=== PATIENT | female | born 1950 | race Caucasian/White ===

== ENCOUNTER 2024-06-16 21:42 | Observation (INO) | payer OTHER ==
--- OUTSIDE RECORDS SUMMARY | 2024-06-16 21:45 | XMS REPORT | Clinical Summary ---
Author Name Unknown Organization [facility] Address [address] [place] [address] Care Team Providers Care Telesales Manager Name Role Phone Hernán Escalona MD Primary Care Provider + Social History Tobacco Use Types Packs/Day Years Used Date Smoking Tobacco: Never Assessed Comments Unknown Sex and Gender Information Value Date Recorded Sex Assigned at Not on file Legal Sex Female 9:03 AM CDT Gender Identity Not on file Sexual Orientation Not on file Plan of Treatment Not on file Insurance [facility] [place]: [facility] [id number] [place] [address] [facility] [employer] [facility] Address: [address] [place] [address] Care Teams Telesales Manager Relationship Specialty Start Date End Date Hernán Escalona MD [address] [place] [phone] [email or web address] - General Family Practice 06/29/15
[2024-06-16 23:30] LABS: Absolute Basophils 0.1 K/uL (0-0.5); Absolute Eosinophils 0.1 K/uL (0-0.5); Absolute Lymphocytes (CBC) 2.2 K/uL (0.7-4.9); Absolute Monocytes 0.9 K/uL (0.1-1.3); Absolute Neutrophil 7.2 K/uL (1.8-8.0); Basophils % 0.9 % (0-1.3); Eosinophils % 1.2 % (0-4.4); Hematocrit 44.6 % (36.0-45.0); Lymphocytes % 20.7 % (15.3-44.8); MCH 30.2 pg (27.0-35.0); MCHC 33.6 g/dL (32.0-36.0); MCV 89.9 fL (80-100); MPV 8.8 fL (7.6-11.3); Monocytes % 8.7 % (3.3-12.3); Neutrophils % 68.5 % (41.7-73.7); Nucleated Red Blood Cells % 0.2 % (0-0); Platelets 161 thou/uL (152-406); RBC Red Blood Cell Count 4.96 M/uL (3.86-4.86); Red Cell Distribution Width 13.6 % (12.1-15.2)
[2024-06-16 23:35] LABS: PT Prothrombin Time 11.5 SECONDS (10-13.0); PTT, Activated Partial Thromb 32.6 SECONDS (27.2-37.4); Protime INR 1.01
[2024-06-16 23:46] LABS: Albumin 3.9 g/dL (3.4-5.0); Bilirubin Direct 0.2 mg/dL (0-0.2); Bilirubin Indirect, Calculated 0.5 mg/dL (0.2-0.8); Bilirubin Total 0.7 mg/dL (0.2-1.0); Globulin 3.9 g/dL (2.3-3.5); Protein, Total 7.8 g/dL (6.4-8.2); Troponin High Sensitivity 7.9 pg/mL (<58.9)
[2024-06-17] MEDS ORDERED: HYDRALAZINE HCL 25 MG TABLET ONE (00:30)
[2024-06-17] MEDS ORDERED: NA CHLORIDE 0.9% 1,000 ML ONE (00:30)
[2024-06-17] MEDS ORDERED: HYDRALAZINE HCL 10 MG TABLET ONE (01:23)
[2024-06-17] MEDS ORDERED: LOSARTAN POTASSIUM 50 MG TABLET ONE (01:23)
[2024-06-17] MEDS ORDERED: ASPIRIN EC 325 MG TABLET PO ONE (01:23)
--- NOTE | 2024-06-17 01:23 | EDPHYS ---
Physician Documentation [facility] Name: Vickie Ibrahim Age: 73 yrs Sex: Female : 1950 Arrival Date: 06/16/2024 Time: 21:42 Bed 13 Private MD: ED Physician Jose Miguel Melchor HPI: 06/16 22:11 This 73 yrs old Female presents to ER via Unassigned with complaints of Altered Mental sp4 Status. 06/17 23:24 73-year-old female presents with complaint of mental status changes.. sp4 23:25 Patient was reported to have slurring of the speech and confusion at home.. sp4 Historical: - Allergies: 06/16 22:14 No Known Allergies; vc1 - Home Meds: 22:14 metoprolol tartrate 100 mg Oral tablet [Active]; vc1 - PMHx: 22:14 Thyroid cancer; Hypertensive disorder; vc1 22:16 gastric sleeve; vc1 - PSHx: 22:14 Thyroidectomy; bilateral knee replacement; vc1 - Immunization history:: Adult Immunizations up to date. - Infectious Disease History:: Denies. - Social history:: Smoking status: Patient denies any tobacco usage or history of. - Family history:: not pertinent. ROS: 06/17 23:25 Constitutional: Negative for fever, chills, and weight loss, positive confusion, sp4 positive slurring of the speech resolved prior to arrival. All other systems are negative, Exam: 00:31 Constitutional: This is a well developed, well nourished patient who is awake, alert, sp4 and in no acute distress. Head/Face: Normocephalic, atraumatic. Eyes: Pupils equal round and reactive to light, extra-ocular motions intact. Lids and lashes normal. Conjunctiva and sclera are not injected. Cornea within normal limits. Periorbital areas with no swelling, redness, or edema. ENT: Nares patent. No nasal discharge, no septal abnormalities noted. Tympanic membranes are normal and external auditory canals are clear. Oropharynx with no redness, swelling, or masses, exudates, or evidence of obstruction, uvula midline. Mucous membranes moist. Neck: Trachea midline, no thyromegaly or masses palpated, and no cervical lymphadenopathy. Supple, full range of motion without nuchal rigidity, or vertebral point tenderness. Chest/axilla: Normal chest wall appearance and motion. Nontender with no deformity. No lesions are appreciated. Cardiovascular: Regular rate and rhythm with a normal S1 and S2. No gallops, murmurs, or rubs. Normal PMI, no JVD. No pulse deficits. Respiratory: Lungs have equal breath sounds bilaterally, clear to auscultation and percussion. No rales, rhonchi or wheezes noted. No increased work of breathing, no retractions or nasal flaring. Abdomen/GI: Soft, with normal bowel sounds. No distension or tympany. No guarding or rebound. No evidence of tenderness throughout. Back: No spinal tenderness. No costovertebral tenderness. Skin: Warm, dry with normal turgor. Normal color with no rashes, no lesions, and no evidence of cellulitis. MS/ Extremity: Pulses equal, no cyanosis. Neurovascular intact. Full, normal range of motion. Neuro: Awake and alert, GCS 15, oriented to person, place, time, and situation. Cranial nerves II-XII grossly intact. Motor strength 5/5 in all extremities. Sensory grossly intact. Psych: Awake, alert, with orientation to person, place and time. Behavior, mood, and affect are within normal limits Vital Signs: 06/16 22:11 BP 191 / 73; Pulse 63; Resp 18; Temp 98.5; Pulse Ox 100% ; vc1 06/17 01:42 BP 187 / 92; Pulse 72; Resp 18; Temp 98; Pulse Ox 99% on R/A; MAP 116 mmHg; aa10 NIH Stroke Scale Scores: 00:31 NIHSS Score: 0 sp4 Wilbur Coma Score: 00:31 Eye Response: spontaneous(4). Motor Response: obeys commands(6). Verbal Response: sp4 oriented(5). Total: 15. MDM: 06/16 22:15 Medical Screening Exam initiated sp4 06/17 00:57 ED course: THIS REPORT CONTAINS FINDINGS THAT MAYBE CRITICAL TO PATIENT CARE: I sp4 communicated the above findings by telephone with Dr. Jose Miguel Melchor MD on 06/16/2024 11:40 PM CDT who demonstrated understanding of the above finding(s)/recommendation(s). Electronically signed by: Emelyn Gonzalez MD 06/16/2024 11:40 PM CDT End of Addendum EXAM: CT Head Without Intravenous Contrast CLINICAL HISTORY: The patient is 73 years old and is Female; STROKE ALERT TECHNIQUE: Axial computed tomography images of the head/brain without intravenous contrast. Sagittal and coronal reformatted images were created and reviewed. This CT exam was performed using one or more of the following dose reduction techniques: automated exposure control, adjustment of the mA and/or kV according to patient size, and/or use of iterative reconstruction technique. COMPARISON: No relevant prior studies available. FINDINGS: BRAIN: Unremarkable. The muir-white matter differentiation is preserved . No hemorrhage. No significant white matter disease. No edema. No extra-axial fluid collections. VENTRICLES: Unremarkable. No ventriculomegaly. BONES/JOINTS: No acute fracture. SOFT TISSUES: Unremarkable. SINUSES: Unremarkable as visualized. No acute sinusitis. MASTOID AIR CELLS: Unremarkable as visualized. No mastoid effusion. ORBITS: Unremarkable as visualized. IMPRESSION: No acute intracranial findings. Electronically signed by: Emelyn Gonzalez MD 06/16/2024 11:25 PM. ED course: IMPRESSION: XR Chest, 1 View: No acute findings in the chest. CTAngiography Head With Intravenous Contrast: No large vessel occlusion. No aneurysm. CTAngiography Neck With Intravenous Contrast: No significant stenosis. No dissection or occlusion.. 01:09 Differential Diagnosis: CVA, electrolyte abnormality, seizure, TIA. 4 23:25 Data reviewed: vital signs, nurses notes, lab test result(s), EKG, radiologic studies, sp4 CT scan, plain films. Consideration of Admission/Observation Escalation of care including admission/observation considered. ED course: Stable for admission to the hospital.. 06/16 22:24 Order name: Basic Metabolic Panel 4 06/16 22:24 Order name: CBC with Diff; Complete Time: 00:30 [facility] 06/16 22:24 Order name: Hepatic Function [facility] 06/16 22:24 Order name: High Sensitivity Troponin [facility] 06/16 22:24 Order name: Magnesium [facility] 06/16 22:24 Order name: Protime (+inr); Complete Time: 00:30 [facility] 06/16 22:24 Order name: Ptt, Activated; Complete Time: 00:30 sp4 06/17 01:01 Order name: Glucose, Ancillary Testing; Complete Time: 01:23 EDMD 06/17 01:44 Order name: T4 Free EDMD 06/17 01:44 Order name: Thyroid Stimulating Hormone EDMD 06/17 02:24 Order name: Basic Metabolic Panel EDMD 06/17 02:24 Order name: Basic Metabolic Panel EDMD 06/17 02:24 Order name: Lipid Profile EDMD 06/17 02:24 Order name: Lipid Profile [facility] 06/17 02:24 Order name: Lipid Profile EDMD 06/17 02:24 Order name: Magnesium EDMD 06/17 02:24 Order name: Magnesium EDMD 06/17 03:21 Order name: CREATININE WHOLE BLOOD EDMD 06/16 22:24 Order name: CT Head Angio 4 06/16 22:24 Order name: CT Neck Angio 4 06/16 22:24 Order name: Stroke CXR 1 View sp4 06/16 22:30 Order name: Head Brain Wo Cont EDMD 06/17 02:24 Order name: CONS Physician Consult EDMD 06/16 22:24 Order name: Accucheck; Complete Time: 00:50 sp4 06/16 22:24 Order name: Cardiac monitoring; Complete Time: 00:45 sp4 06/16 22:24 Order name: EKG - Nurse/Tech; Complete Time: 01:00 sp4 06/16 22:24 Order name: IV Saline Lock; Complete Time: 00:45 sp4 06/16 22:24 Order name: Labs collected and sent; Complete Time: 23:20 sp4 06/16 22:24 Order name: NPO; Complete Time: 00:45 sp4 06/16 22:24 Order name: O2 Per Protocol; Complete Time: 00:45 sp4 06/16 22:24 Order name: O2 Sat Monitoring; Complete Time: 00:45 sp4 06/16 22:24 Order name: Stroke Swallow Screen; Complete Time: 00:45 sp4 Administered Medications: 00:44 Drug: NS 0.9% IV 1000 ml IV at 125 ml/hr once; to be given as a bolus over 60 minutes aa10 Route: IV; Rate: 125 ml/hr; Site: left antecubital; 00:45 Drug: HydrALAZINE PO 25 mg PO once Route: PO; aa10 01:52 Follow up: Response: No adverse reaction; Marked relief of symptoms aa10 :26 Drug: Aspirin PO Chewable Tablet 324 mg PO once; 81 mg tablets x 4 Route: PO; :52 Follow up: Response: No adverse reaction; Marked relief of symptoms aa10 :27 Drug: Losartan PO 50 mg PO once Route: PO; :52 Follow up: Response: No adverse reaction; Marked relief of symptoms aa10 :30 Drug: hydrALAZINE IVP 10 mg IVP once Route: IVP; Site: left antecubital; :52 Follow up: Response: No adverse reaction; Marked relief of symptoms aa10 Disposition Summary: 06/17/24 01:22 Hospitalization Ordered Notes: Hospitalization Status: Inpatient Admission sp4 Provider: Thien Oneil sp4 Condition: Fair sp4 Problem: new sp4 Symptoms: have improved sp4 Bed/Room Type: Standard sp4 Location: [facility] ER HOLD(06/17/24 02:01) 3 Room Assignment: ERHOLD-(06/17/24 02:01) 3 Diagnosis - Transient cerebral ischemic attack, unspecified sp4 - Acute intermittent aphasia, acute intermittent dysarthria, TIA sp4 Forms: - Medication Reconciliation Form sp4 - SBAR form sp4 - Leadership Thank You Letter sp4 NIH Stroke Scale - NIH Stroke Score Date: 06/17/2024 Time: 00:31 Total Score = 0 10. Dysarthria (speech clarity - read or repeat words) - 0(Normal) 11. Extinction and Inattention (visual/tactile/auditory/spatial/personal) - 0(No abnormality) 1a. Level of Consciousness (LOC) - 0(Alert) 1b. Level of Consciousness (LOC) (Month \T\ Age) - 0(Both) 1c. LOC Commands (Open \T\ Closes Eyes/Caustic Purification Operator) - 0(Both) 2. Best Gaze (Lateral Gaze Paresis) - 0(Normal) 3. Visual Field Loss - 0(No visual loss) 4. Facial Palsy - 0(Normal) 5a. Left Arm: Motor (10-second hold) - 0(No drift) 5b. Right Arm: Motor (10-second hold) - 0(No drift) 6a. Left Leg: Motor (5-second hold - always test supine) - 0(No drift) 6b. Right Leg: Motor (5-second hold - always test supine) - 0(No drift) 7. Limb Ataxia (finger/nose \T\ heel/ivy - test with eyes open) - 0(Absent) 8. Sensory Loss (pinprick arms/legs/face) - 0(Normal) 9. Best Language: Aphasia (description/naming/reading) - 0(No aphasia) Initials: sp4 Signatures: Dispatcher [employer] EDMS Alvina Adan, RN RN lg3 Laney David RN RN vc1 Jose Miguel Melchor MD MD sp4 Milly Adame RN RN aa10 Corrections: (The following items were deleted from the chart) 06/16 22:24 22:24 Chest Single View+RAD.RAD.BRZ ordered. EDMS EDMS 22:30 22:24 CT-STROKE BRAIN W/O CONTRAST+CT.RAD.BRZ ordered. EDMS EDMS 06/17 01:43 01:23 THYROID STIMULAT HORMONE+C.LAB.BRZ ordered. EDMS EDMS 01:43 01:23 T4 FREE+C.LAB.BRZ ordered. EDMS EDMS 02:01 01:22 Telemetry/MedSurg (Inpatient) sp4 lg3 02:01 01:22 sp4 lg3
--- NOTE | 2024-06-17 01:23 | ER ---
Nurse's Notes [facility] Name: Vickie Ibrahim Age: 73 yrs Sex: Female : 1950 Arrival Date: 06/16/2024 Time: 21:42 Bed 13 Private MD: Diagnosis: Transient cerebral ischemic attack, unspecified;Acute intermittent aphasia, acute intermittent dysarthria, TIA Presentation: 06/16 22:11 Chief complaint: Spouse and/or significant other states: around 6:30 she started vc1 mumbling, talking and wasn't making any sense. She had a slight headache. Talking and not making any sense. Coronavirus screen: Client denies travel out of the [place] in the last 14 days. At this time, the client does not indicate any symptoms associated with coronavirus-19. Ebola Screen: Patient negative for fever greater than or equal to 101.5 degrees Fahrenheit, and additional compatible Ebola Virus Disease symptoms Patient denies exposure to infectious person. Patient denies travel to an Ebola-affected area in the 21 days before illness onset. No symptoms or risks identified at this time. Initial Sepsis Screen: Does the patient meet any 2 criteria? No. Patient's initial sepsis screen is negative. Does the patient have a suspected source of infection? No. Patient's initial sepsis screen is negative. Risk Assessment: Do you want to hurt yourself or someone else? Patient reports no desire to harm self or others. Note Did the same thing a few weeks ago. Onset of symptoms was June 16, 2024. 22:11 Method Of Arrival: Wheelchair vc1 22:11 Acuity: ARE 2 vc1 Triage Assessment: 22:10 General: Appears in no apparent distress. comfortable, well groomed, well developed, vc1 Behavior is cooperative, appropriate for age. Pain: Complains of pain in forehead Pain does not radiate. EENT: No deficits noted. No signs and/or symptoms were reported regarding the EENT system. Neuro: Level of Consciousness is awake, obeys commands, confused, Oriented to person, place, situation, Reports headache. Cardiovascular: Capillary refill < 3 seconds Patient's skin is warm and dry. Respiratory: Airway is patent Respiratory effort is even, unlabored, Respiratory pattern is regular, symmetrical. GI: No deficits noted. No signs and/or symptoms were reported involving the gastrointestinal system. : Reports urinary frequency. Derm: Skin is intact, is healthy with good turgor, Skin is dry, Skin is normal, Skin temperature is warm. Musculoskeletal: No deficits noted. No signs and/or symptoms reported regarding the musculoskeletal system. Historical: - Allergies: 22:14 No Known Allergies; vc1 - Home Meds: 22:14 metoprolol tartrate 100 mg Oral tablet [Active]; vc1 - PMHx: 22:14 Thyroid cancer; Hypertensive disorder; vc1 22:16 gastric sleeve; vc1 - PSHx: 22:14 Thyroidectomy; bilateral knee replacement; vc1 - Immunization history:: Adult Immunizations up to date. - Infectious Disease History:: Denies. - Social history:: Smoking status: Patient denies any tobacco usage or history of. - Family history:: not pertinent. Screenin:13 [facility] ED Fall Risk Assessment (Adult) History of falling in the last 3 months, vc1 including since admission No falls in past 3 months (0 pts) Confusion or Disorientation Yes (5 pts) Intoxicated or Sedated No (0 pts) Impaired Gait Yes (1 pt) Mobility Assist Device Used No (0 pt) Altered Elimination Yes (1 pt) Score/Fall Risk Level 3 or more points = High Risk Oriented to surroundings, Maintained a safe environment, Educated pt \T\ family on fall prevention, incl call for assistance when getting out of bed, Hourly rounding (assess needs \T\ fall precautionary measures) done, Utilized family, sitter, or virtual change management director as indicated. Abuse screen: Denies threats or abuse. Nutritional screening: No deficits noted. Tuberculosis screening: No symptoms or risk factors identified. Assessment: 06/17 01:48 General: Appears in no apparent distress. comfortable, well groomed, well developed, aa10 Behavior is calm, cooperative, appropriate for age, quiet. Pain: Denies pain. Neuro: No deficits noted. Level of Consciousness is awake, alert, obeys commands, Oriented to person, place, time, situation, Appropriate for age Site Supervising Technical Operator are equal bilaterally Moves all extremities. Gait is steady, Speech is normal, Facial symmetry appears normal, Pupils are PERRLA. Cardiovascular: No deficits noted. Capillary refill < 3 seconds. Respiratory: No deficits noted. Airway is patent. GI: No deficits noted. Abdomen is flat. : Urine is clear, Reports urinary frequency. Vital Signs: 06/16 22:11 BP 191 / 73; Pulse 63; Resp 18; Temp 98.5; Pulse Ox 100% ; vc1 06/17 01:42 BP 187 / 92; Pulse 72; Resp 18; Temp 98; Pulse Ox 99% on R/A; MAP 116 mmHg; aa10 Karan Coma Score: 00:31 Eye Response: spontaneous(4). Motor Response: obeys commands(6). Verbal Response: sp4 oriented(5). Total: 15. NIH Stroke Scale Scores: 00:31 NIHSS Score: 0 sp4 ED Course: 06/16 21:45 Patient arrived in ED. jj6 22:11 Jose Miguel Melchor MD is Attending Physician. sp4 22:14 Triage completed. vc1 22:16 Arm band placed on left wrist. vc1 23:01 Stroke CXR 1 View In Process Unspecified. EDMS 23:08 CT Head Angio In Process Unspecified. EDMS 23:08 CT Neck Angio In Process Unspecified. EDMS 23:08 Head Brain Wo Cont In Process Unspecified. EDMS 23:15 Inserted saline lock: 22 gauge in left antecubital area, using aseptic technique. Blood vc1 collected. Flushed with 10 mL NS. 23:20 Basic Metabolic Panel Sent. vk 23:20 CBC with Diff Sent. vk 23:20 Hepatic Function Sent. vk 23:20 High Sensitivity Troponin Sent. vk 23:20 Magnesium Sent. vk 23:20 Protime (+inr) Sent. vk 23:20 Ptt, Activated Sent. vk 06/17 01:21 Thien Oneil MD is Hospitalizing Provider. sp4 01:50 Patient has correct armband on for positive identification. Allergy band placed. Fall aa10 risk band placed. Placed in gown. Bed in low position. Call light in reach. Side rails up X2. Provided Education on: about plan of care. 01:51 No provider procedures requiring assistance completed. aa10 Administered Medications: 00:44 Drug: NS 0.9% IV 1000 ml IV at 125 ml/hr once; to be given as a bolus over 60 minutes aa10 Route: IV; Rate: 125 ml/hr; Site: left antecubital; 00:45 Drug: HydrALAZINE PO 25 mg PO once Route: PO; aa10 01:52 Follow up: Response: No adverse reaction; Marked relief of symptoms aa10 :26 Drug: Aspirin PO Chewable Tablet 324 mg PO once; 81 mg tablets x 4 Route: PO; Follow up: Response: No adverse reaction; Marked relief of symptoms aa10 :27 Drug: Losartan PO 50 mg PO once Route: PO; : Follow up: Response: No adverse reaction; Marked relief of symptoms aa10 :30 Drug: hydrALAZINE IVP 10 mg IVP once Route: IVP; Site: left antecubital; Follow up: Response: No adverse reaction; Marked relief of symptoms aa10 Medication: 01:50 VIS not applicable for this client. aa10 Outcome: :22 Decision to Hospitalize by Provider. sp4 15:12 Patient left the ED. NIH Stroke Scale - NIH Stroke Score Date: 06/17/2024 Time: 00:31 Total Score = 0 10. Dysarthria (speech clarity - read or repeat words) - 0(Normal) 11. Extinction and Inattention (visual/tactile/auditory/spatial/personal) - 0(No abnormality) 1a. Level of Consciousness (LOC) - 0(Alert) 1b. Level of Consciousness (LOC) (Month \T\ Age) - 0(Both) 1c. LOC Commands (Open \T\ Closes Eyes/Machine Joint Cutter) - 0(Both) 2. Best Gaze (Lateral Gaze Paresis) - 0(Normal) 3. Visual Field Loss - 0(No visual loss) 4. Facial Palsy - 0(Normal) 5a. Left Arm: Motor (10-second hold) - 0(No drift) 5b. Right Arm: Motor (10-second hold) - 0(No drift) 6a. Left Leg: Motor (5-second hold - always test supine) - 0(No drift) 6b. Right Leg: Motor (5-second hold - always test supine) - 0(No drift) 7. Limb Ataxia (finger/nose \T\ heel/ivy - test with eyes open) - 0(Absent) 8. Sensory Loss (pinprick arms/legs/face) - 0(Normal) 9. Best Language: Aphasia (description/naming/reading) - 0(No aphasia) Initials: sp4 Signatures: Dispatcher [employer] Shonda Nelson RN RN ph Aruna Lynch jj6 Laney David RN RN vc1 Jose Miguel Melchor MD MD sp4 Aurora Mariscal Ayoku, RN RN aa10
[2024-06-17] MEDS ORDERED: HYDRALAZINE HCL 20 MG/ML VIAL ONE (01:30)
[2024-06-17] MEDS ORDERED: ACETAMINOPHEN 325 MG TABLET PO PRN (02:19)
--- NOTE | 2024-06-17 02:26 | P.HP ---
Certification for Inpatient Patient admitted to: Observation With expected LOS: <2 Midnights Practitioner: I am a practitioner with admitting privileges, knowledge of patient current condition, hospital course, and medical plan of care. Services: Services provided to patient in accordance with Admission requirements found in Title 42 Section 412.3 of the Code of Federal Regulations Patient History Date of Service: 06/17/24 Reason for admission: TIA. History of Present Illness: 73 y o female pt brought in to the ED with c/o AMS. She has a hx of HTN and HLD and she reports feeling weak and altered. She denies any issues with fever, chills, rigor, n/v or burning when she passes urine. She denies double vision of focal weakness in the legs. No trouble finding words or vocalizing words. she also had headaches and her home blood pressure check was elevated. she decided to come to the ED. Her blood pressure was elevated and her initial labs were not overtly concerning. Imaging studies did not reveal any stenosis or acute infarcts. She was admitted for further work up and blood pressure control. Allergies No Known Allergies Allergy (Verified 06/17/24 02:51) Review of Systems General: Malaise Eyes: Unremarkable ENT: Unremarkable Respiratory: Unremarkable Cardiovascular: Unremarkable Gastrointestinal: Unremarkable Genitourinary: Unremarkable Musculoskeletal: Unremarkable Integumentary: Unremarkable Neurological: Confusion Lymphatics: Unremarkable Physical Examination - Physical Exam General: Alert, Oriented x3 HEENT: Atraumatic, Normocephalic Neck: Supple Respiratory: Normal air movement Cardiovascular: Regular rate/rhythm, Normal S1 S2 Gastrointestinal: Soft and benign Musculoskeletal: No swelling Neurological: Normal speech, Normal strength at 5/5 x4 extr - Studies Laboratory Data (last 24 hrs) 06/16/24 06/16/24 06/16/24 23:11 23:11 23:11 WBC 10.40 Hgb 15.0 Hct 44.6 Plt Count 161 PT 11.5 INR 1.01 APTT 32.6 Sodium 135 L Potassium 4.0 BUN 17 Creatinine 0.90 Glucose 108 H Magnesium 2.0 Total Bilirubin 0.7 AST 23 ALT 28 Alkaline Phosphatase 80 Assessment and Plan - Plan TIA/CVA: her presenting symptoms were pertinent for possible TIA/CVA. Imaging studies have not revealed any significant issues. we will continue on telemetry, aspirin and statin therapy. We will have neurology evaluate her for further recs. Lipid panel to be obained. Hypertension: we will follow vitals [er unit protocol and continue outpt antihypertensive meds. Hyperlipidemia: we will continue statin therapy. Prophylaxis: Lovenox for DVT prophylaxis. Code status: Full code Disposition: we will have her TIA/CVA worked up and discharge her once she is cleared by neurology. - Advance Directives Does patient have a Living Will: No Does patient have a Durable POA for Healthcare: No
[2024-06-17 02:46] LABS: Thyroid Stimulating Hormone 0.444 uIU/mL (0.358-3.740)
[2024-06-17] MEDS: NA CHLORIDE 0.9% 1,000 ML IV SCH (03:00)
--- NOTE | 2024-06-17 03:13 | RAD REPORT ---
ADDENDUM #1 THIS REPORT CONTAINS FINDINGS THAT MAY BE CRITICAL TO PATIENT CARE: I communicated the above findings by telephone with Dr. Jose Miguel Melchor MD on 06/16/2024 11:40 PM CDT who demonstrated understanding of the above finding(s)/recommendation(s). Electronically signed by: Emelyn Gonzalez MD 06/16/2024 11:40 PM CDT End of Addendum EXAM: CT Head Without Intravenous Contrast CLINICAL HISTORY: The patient is 73 years old and is Female; STROKE ALERT TECHNIQUE: Axial computed tomography images of the head/brain without intravenous contrast. Sagittal and cor onal reformatted images were created and reviewed. This CT exam was performed using one or more of the following dose reduction techniques: automated exposure control, adjustment of the mA and/or kV according to patient size, and/or use of iterative reconstruction technique. COMPARISON: No relevant prior studies available. FINDINGS: BRAIN: Unremarkable. The muir-white matter differentiation is preserved . No hemorrhage. No s ignificant white matter disease. No edema. No extra-axial fluid collections. VENTRICLES: Unremarkable. No ventriculomegaly. BONES/JOINTS: No acute fracture. SOFT TISSUES: Unremarkable. SINUSES: Unremarkable as visualized. No acute sinusitis. MASTOID AIR CELLS: Unremarkable as visualized. No mastoid effusion. ORBITS: Unremarkable as visualized. IMPRESSION: No acute intracranial findings. Electronically signed by: Emelyn Gonzalez MD 06/16/2024 11:25 PM CDT Due to temporary technical issues with the [employer] reporting system, reports are being riya d by the in-house radiologist without review as a courtesy to ensure prompt reporting the interpreting radiologist is fully responsible for the content of the report. Transcribed Date/Time: 06/17/2024 3:12 AM
--- NOTE | 2024-06-17 03:13 | RAD REPORT ---
EXAM: XR Chest, 1 View CLINICAL HISTORY: The patient is 73 years old and is Female; stroke work up TECHNIQUE: Frontal view of the chest. COMPARISON: No relevant prior studies available. FINDINGS: Lungs: Unremarkable. No consolidation. Pleural space: Unremarkable. No pneumothorax. Heart: Unremarkable. Mediastinum: Unremarkable. Normal mediastinal contour. Bones/joints: Bilateral shoulder arthroplasty. * A single impression for all exams can be found at the end of this report EXAM: CT Angiography Head With Intravenous Contrast CLINICAL HISTORY: The patient is 73 years old and is Female; stroke work up TECHNIQUE: Axial computed tomographic angiography images of the head with intravenous contrast. S agittal and coronal reformatted images were created and reviewed. This CT exam was performed using one or more of the following dose reduction techniques: automated exposure control, adjustmen t of the mA and/or kV according to patient size, and/or use of iterative reconstruction technique. MIP reconstructed images were created and reviewed. COMPARISON: No relevant prior studies available. FINDINGS: Right internal carotid artery: Moderate narrowing of the right cavernous ICA. No aneurysm. Right anterior cerebral artery: Unremarkable. No occlusion or significant stenosis. No aneury sm. Right middle cerebral artery: Unremarkable. No occlusion or significant stenosis. No aneurysm . 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 No occlusion or significant stenosis. No aneurysm. Right vertebral artery: Unremarkable as visualized. Left internal carotid artery: No acute findings. Intracranial segment is patent with no signifi cant stenosis. No aneurysm. Left anterior cerebral artery: Unremarkable. No occlusion or significant stenosis. No aneurys m. Left middle cerebral artery: Unremarkable. No occlusion or significant stenosis. No aneurysm. Left posterior cerebral artery: origin left HVAC JOURNEYMAN. No occlusion or significant stenosis. No aneurysm. Left vertebral artery: Unremarkable as visualized. Basilar artery: Unremarkable. No occlusion or significant stenosis. No aneurysm. * A single impression for all exams can be found at the end of this report EXAM: CT Angiography Neck With Intravenous Contrast CLINICAL HISTORY: The patient is 73 years old and is Female; stroke work up TECHNIQUE: Routine carotid CT angiography protocol was performed with intravenous contrast. NASCE T criteria using the distal ICAs for comparison were used for evaluation of stenoses. Sagittal and coronal reformatted images were created and reviewed. This CT exam was performed using one or m ore of the following dose reduction techniques: automated exposure control, adjustment of the mA and/or kV according to patient size, and/or use of iterative reconstruction technique. MIP reconstr ucted images were created and reviewed. COMPARISON: None. FINDINGS: VASCULATURE: Right common carotid artery: Unremarkable. No occlusion or significant stenosis. No dissectio n. Right internal carotid artery: Unremarkable. Extracranial segment is patent with no occlusion o r significant stenosis. No dissection. Right external carotid artery: Unremarkable. No occlusion. Right vertebral artery: Diminutive right vertebral artery. No occlusion or significant stenosis. No dissection. Left common carotid artery: Unremarkable. No occlusion or significant stenosis. No dissection . Left internal carotid artery: Unremarkable. Extracranial segment is patent with no occlusion or significant stenosis. No dissection. Left external carotid artery: Unremarkable. No occlusion. Left vertebral artery: Unremarkable. No occlusion or significant stenosis. No dissection. NECK: Bones/joints: Unremarkable. No acute fracture. Soft tissues: Unremarkable. Lung apices: Clear. CAROTID STENOSIS REFERENCE USING NASCET CRITERIA: % ICA stenosis = (1 - narrowest ICA diameter/diameter of distal cervical ICA) x 100. Mild - <50% stenosis. Moderate - 50-69% stenosis. Severe - 70-94% stenosis. Near occlusion - 95-99% stenosis. Occluded - 100% stenosis. * A single impression for all exams can be found at the end of this report IMPRESSION: XR Chest, 1 View: No acute findings in the chest. CT Angiography Head With Intravenous Contrast: No large vessel occlusion. No aneurysm. CT Angiography Neck With Intravenous Contrast: No significant stenosis. No dissection or occlusion. Electronically signed by: Vignesh Hay MD 06/17/2024 12:00 AM CDT RP 8 Due to temporary technical issues with the [employer] reporting system, reports are being riya d by the in-house radiologist without review as a courtesy to ensure prompt reporting the interpreting radiologist is fully responsible for the content of the report. Transcribed Date/Time: 06/17/2024 3:13 AM
--- NOTE | 2024-06-17 03:14 | RAD REPORT ---
EXAM: XR Chest, 1 View CLINICAL HISTORY: The patient is 73 years old and is Female; stroke work up TECHNIQUE: Frontal view of the chest. COMPARISON: No relevant prior studies available. FINDINGS: Lungs: Unremarkable. No consolidation. Pleural space: Unremarkable. No pneumothorax. Heart: Unremarkable. Mediastinum: Unremarkable. Normal mediastinal contour. Bones/joints: Bilateral shoulder arthroplasty. * A single impression for all exams can be found at the end of this report EXAM: CT Angiography Head With Intravenous Contrast CLINICAL HISTORY: The patient is 73 years old and is Female; stroke work up TECHNIQUE: Axial computed tomographic angiography images of the head with intravenous contrast. S agittal and coronal reformatted images were created and reviewed. This CT exam was performed using one or more of the following dose reduction techniques: automated exposure control, adjustmen t of the mA and/or kV according to patient size, and/or use of iterative reconstruction technique. MIP reconstructed images were created and reviewed. COMPARISON: No relevant prior studies available. FINDINGS: Right internal carotid artery: Moderate narrowing of the right cavernous ICA. No aneurysm. Right anterior cerebral artery: Unremarkable. No occlusion or significant stenosis. No aneury sm. Right middle cerebral artery: Unremarkable. No occlusion or significant stenosis. No aneurysm . 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 No occlusion or significant stenosis. No aneurysm. Right vertebral artery: Unremarkable as visualized. Left internal carotid artery: No acute findings. Intracranial segment is patent with no signifi cant stenosis. No aneurysm. Left anterior cerebral artery: Unremarkable. No occlusion or significant stenosis. No aneurys m. Left middle cerebral artery: Unremarkable. No occlusion or significant stenosis. No aneurysm. Left posterior cerebral artery: origin left MOTOR ADJUSTER. No occlusion or significant stenosis. No aneurysm. Left vertebral artery: Unremarkable as visualized. Basilar artery: Unremarkable. No occlusion or significant stenosis. No aneurysm. * A single impression for all exams can be found at the end of this report EXAM: CT Angiography Neck With Intravenous Contrast CLINICAL HISTORY: The patient is 73 years old and is Female; stroke work up TECHNIQUE: Routine carotid CT angiography protocol was performed with intravenous contrast. NASCE T criteria using the distal ICAs for comparison were used for evaluation of stenoses. Sagittal and coronal reformatted images were created and reviewed. This CT exam was performed using one or m ore of the following dose reduction techniques: automated exposure control, adjustment of the mA and/or kV according to patient size, and/or use of iterative reconstruction technique. MIP reconstr ucted images were created and reviewed. COMPARISON: None. FINDINGS: VASCULATURE: Right common carotid artery: Unremarkable. No occlusion or significant stenosis. No dissectio n. Right internal carotid artery: Unremarkable. Extracranial segment is patent with no occlusion o r significant stenosis. No dissection. Right external carotid artery: Unremarkable. No occlusion. Right vertebral artery: Diminutive right vertebral artery. No occlusion or significant stenosis. No dissection. Left common carotid artery: Unremarkable. No occlusion or significant stenosis. No dissection . Left internal carotid artery: Unremarkable. Extracranial segment is patent with no occlusion or significant stenosis. No dissection. Left external carotid artery: Unremarkable. No occlusion. Left vertebral artery: Unremarkable. No occlusion or significant stenosis. No dissection. NECK: Bones/joints: Unremarkable. No acute fracture. Soft tissues: Unremarkable. Lung apices: Clear. CAROTID STENOSIS REFERENCE USING NASCET CRITERIA: % ICA stenosis = (1 - narrowest ICA diameter/diameter of distal cervical ICA) x 100. Mild - <50% stenosis. Moderate - 50-69% stenosis. Severe - 70-94% stenosis. Near occlusion - 95-99% stenosis. Occluded - 100% stenosis. * A single impression for all exams can be found at the end of this report IMPRESSION: XR Chest, 1 View: No acute findings in the chest. CT Angiography Head With Intravenous Contrast: No large vessel occlusion. No aneurysm. CT Angiography Neck With Intravenous Contrast: No significant stenosis. No dissection or occlusion. Electronically signed by: Vignesh Hay MD 06/17/2024 12:00 AM CDT RP 8 Due to temporary technical issues with the [employer] reporting system, reports are being riya d by the in-house radiologist without review as a courtesy to ensure prompt reporting the interpreting radiologist is fully responsible for the content of the report. Transcribed Date/Time: 06/17/2024 3:13 AM
[2024-06-17 03:28] VITALS: BMI 42.6
[2024-06-17] MEDS: METOPROLOL XL 25 MG TAB PO SCH (07:00)
--- NOTE | 2024-06-17 07:44 | RAD REPORT ---
EXAM: XR Chest, 1 View CLINICAL HISTORY: The patient is 73 years old and is Female; stroke work up TECHNIQUE: Frontal view of the chest. COMPARISON: No relevant prior studies available. FINDINGS: Lungs: Unremarkable. No consolidation. Pleural space: Unremarkable. No pneumothorax. Heart: Unremarkable. Mediastinum: Unremarkable. Normal mediastinal contour. Bones/joints: Bilateral shoulder arthroplasty. * A single impression for all exams can be found at the end of this report EXAM: CT Angiography Head With Intravenous Contrast CLINICAL HISTORY: The patient is 73 years old and is Female; stroke work up TECHNIQUE: Axial computed tomographic angiography images of the head with intravenous contrast. S agittal and coronal reformatted images were created and reviewed. This CT exam was performed using one or more of the following dose reduction techniques: automated exposure control, adjustmen t of the mA and/or kV according to patient size, and/or use of iterative reconstruction technique. MIP reconstructed images were created and reviewed. COMPARISON: No relevant prior studies available. FINDINGS: Right internal carotid artery: Moderate narrowing of the right cavernous ICA. No aneurysm. Right anterior cerebral artery: Unremarkable. No occlusion or significant stenosis. No aneury sm. Right middle cerebral artery: Unremarkable. No occlusion or significant stenosis. No aneurysm . 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 No occlusion or significant stenosis. No aneurysm. Right vertebral artery: Unremarkable as visualized. Left internal carotid artery: No acute findings. Intracranial segment is patent with no signifi cant stenosis. No aneurysm. Left anterior cerebral artery: Unremarkable. No occlusion or significant stenosis. No aneurys m. Left middle cerebral artery: Unremarkable. No occlusion or significant stenosis. No aneurysm. Left posterior cerebral artery: origin left EMERGENCY MANAGEMENT SPECIALIST. No occlusion or significant stenosis. No aneurysm. Left vertebral artery: Unremarkable as visualized. Basilar artery: Unremarkable. No occlusion or significant stenosis. No aneurysm. * A single impression for all exams can be found at the end of this report EXAM: CT Angiography Neck With Intravenous Contrast CLINICAL HISTORY: The patient is 73 years old and is Female; stroke work up TECHNIQUE: Routine carotid CT angiography protocol was performed with intravenous contrast. NASCE T criteria using the distal ICAs for comparison were used for evaluation of stenoses. Sagittal and coronal reformatted images were created and reviewed. This CT exam was performed using one or m ore of the following dose reduction techniques: automated exposure control, adjustment of the mA and/or kV according to patient size, and/or use of iterative reconstruction technique. MIP reconstr ucted images were created and reviewed. COMPARISON: None. FINDINGS: VASCULATURE: Right common carotid artery: Unremarkable. No occlusion or significant stenosis. No dissectio n. Right internal carotid artery: Unremarkable. Extracranial segment is patent with no occlusion o r significant stenosis. No dissection. Right external carotid artery: Unremarkable. No occlusion. Right vertebral artery: Diminutive right vertebral artery. No occlusion or significant stenosis. No dissection. Left common carotid artery: Unremarkable. No occlusion or significant stenosis. No dissection . Left internal carotid artery: Unremarkable. Extracranial segment is patent with no occlusion or significant stenosis. No dissection. Left external carotid artery: Unremarkable. No occlusion. Left vertebral artery: Unremarkable. No occlusion or significant stenosis. No dissection. NECK: Bones/joints: Unremarkable. No acute fracture. Soft tissues: Unremarkable. Lung apices: Clear. CAROTID STENOSIS REFERENCE USING NASCET CRITERIA: % ICA stenosis = (1 - narrowest ICA diameter/diameter of distal cervical ICA) x 100. Mild - <50% stenosis. Moderate - 50-69% stenosis. Severe - 70-94% stenosis. Near occlusion - 95-99% stenosis. Occluded - 100% stenosis. * A single impression for all exams can be found at the end of this report IMPRESSION: XR Chest, 1 View: No acute findings in the chest. CT Angiography Head With Intravenous Contrast: No large vessel occlusion. No aneurysm. CT Angiography Neck With Intravenous Contrast: No significant stenosis. No dissection or occlusion. Electronically signed by: Vignesh Hay MD 06/17/2024 12:00 AM CDT RP 8 Due to temporary technical issues with the [employer] reporting system, reports are being riya d by the in-house radiologist without review as a courtesy to ensure prompt reporting the interpreting radiologist is fully responsible for the content of the report. Transcribed Date/Time: 06/17/2024 7:44 AM
[2024-06-17] MEDS: AMLODIPINE 5 MG TAB PO SCH (09:00)
[2024-06-17] MEDS: ENOXAPARIN 40 MG/0.4 ML SQ SCH (09:00)
[2024-06-17] MEDS: ASPIRIN 81 MG CHEWABLE TABLET PO SCH (09:00)
[2024-06-17] MEDS ORDERED: ASPIRIN 81 MG CHEWABLE TABLET ONE (09:02)
[2024-06-17] MEDS ORDERED: AMLODIPINE 5 MG TAB ONE (09:02)
[2024-06-17] MEDS ORDERED: ENOXAPARIN 40 MG/0.4 ML SQ ONE (09:03)
--- NOTE | 2024-06-17 12:27 | EKG ---
Test Date: 2024-06-17 Test Time: 00:58:12 Manager Basketball: PIYUSH MEASUREMENT RESULTS: Intervals: Rate: 68 RI: 166 QRSD: 106 QT: 438 QTc: 465 [place]: P: 41 RI: 166 QRS: -37 T: -9 INTERPRETIVE STATEMENTS: Normal sinus rhythm Left axis deviation Nonspecific ST and T wave abnormality Abnormal ECG No previous ECG available for comparison Electronically Signed On 06-17-24 12:25:01 CDT by Corey Caceres
--- NOTE | 2024-06-17 12:35 | P.DS ---
Admission Date: 06/17/24 Discharge Date: 06/17/24 Disposition: ROUTINE DISCHARGE Discharge Condition: FAIR Reason for Admission: TIA. Vital Signs/Physical Exam: Temp Pulse Resp BP Pulse Ox 99 F 58 20 159/66 H 99 06/17/24 03:37 06/17/24 07:00 06/17/24 03:37 06/17/24 07:00 06/17/24 03:37 Laboratory Data at Discharge: WBC 10.40 thou/uL (4.3-10.9) 06/16/24 23:11 Hgb 15.0 g/dL (12.0-15.0) 06/16/24 23:11 Hct 44.6 % (36.0-45.0) 06/16/24 23:11 Plt Count 161 thou/uL (152-406) 06/16/24 23:11 PT 11.5 SECONDS (10-13.0) 06/16/24 23:11 INR 1.01 06/16/24 23:11 APTT 32.6 SECONDS (27.2-37.4) 06/16/24 23:11 Sodium 135 mEq/L (136-145) L 06/16/24 23:11 Potassium 4.0 mEq/L (3.5-5.1) 06/16/24 23:11 BUN 17 mg/dL (7-18) 06/16/24 23:11 Creatinine 0.90 mg/dL (0.55-1.02) 06/16/24 23:11 Glucose 108 mg/dL (74-106) H 06/16/24 23:11 Magnesium 2.0 mg/dL (1.6-2.4) 06/16/24 23:11 Total Bilirubin 0.7 mg/dL (0.2-1.0) 06/16/24 23:11 AST 23 U/L (15-37) 06/16/24 23:11 ALT 28 U/L (13-56) 06/16/24 23:11 Alkaline Phosphatase 80 U/L (45-117) 06/16/24 23:11 Triglycerides 70 mg/dL (<150) 06/17/24 04:22 Cholesterol 187 mg/dL (<200) 06/17/24 04:22 HDL Cholesterol 71 mg/dL (40-60) H 06/17/24 04:22 Cholesterol/HDL Ratio 2.63 06/17/24 04:22 Home Medications: Aspirin [Aspirin EC 81 MG] 81 mg PO DAILY #30 tab 06/17/24 Calcitrol [Rocaltrol*] 0.25 mcg PO DAILY 06/17/24 Clopidogrel Bisulfate [Plavix] 75 mg PO DAILY #30 tab 06/17/24 Folic Acid 1 mg PO DAILY #30 tab 06/17/24 Levothyroxine Sodium [Synthroid] 100 mcg PO DAILY #30 tab 06/17/24 Metoprolol Succinate 100 mg PO DAILY 06/17/24 Simvastatin 80 mg PO DAILY #30 tab 06/17/24 New Medications: Aspirin [Aspirin EC 81 MG] 81 mg PO DAILY #30 tab Folic Acid 1 mg PO DAILY #30 tab Clopidogrel Bisulfate [Plavix] 75 mg PO DAILY #30 tab Simvastatin 80 mg PO DAILY #30 tab Levothyroxine Sodium [Synthroid] 100 mcg PO DAILY #30 tab Diet: AHA Activity: Ad rachid Followup: Traci Haddad RN [Primary Care Provider] -
[2024-06-17] MEDS ORDERED: ATORVASTATIN 20 MG TAB PO SCH (21:00)
[2024-06-17 21:52] VITALS: BP 144/96; TEMP 97.7; O2SAT 97
[2024-06-18] MEDS ORDERED: CALCITROL 0.25 MCG CAP PO SCH (09:00)
--- NOTE | 2024-06-18 14:28 | ECHO ---
HEIGHT: 5 ft 6 in WEIGHT: 264 lb 0 oz DATE OF STUDY: 06/17/[address]: Arian Gallagher MD 2-DIMENSIONAL: YES M.MODE: YES DOPPLER: YES COLOR FLOW: YES TDS: PORTABLE: YES DEFINITY: BUBBLE STUDY: DIAGNOSIS: TRANSIENT ISCHEMIC ATTACK CARDIAC HISTORY: CATHERIZATION: SURGERY: PROSTHETIC VALVE: PACEMAKER: MEASUREMENTS (cm) DIASTOLIC (NORMALS) SYSTOLIC (NORMALS) IVSd 1.1 (0.6-1.2) LA Diam 3.8 (1.9-4.0) LVEF 60-65% LVIDd 4.1 (3.5-5.7) LVIDs 2.5 (2.0-3.5) %FS 38% LVPWd 1.2 (0.6-1.2) Ao Diam 2.7 (2.0-3.7) 2 DIMENSIONAL ASSESSMENT: RIGHT ATRIUM: NORMAL LEFT ATRIUM: NORMAL RIGHT VENTRICLE: NORMAL LEFT VENTRICLE: NORMAL TRICUSPID VALVE: NORMAL MITRAL VALVE: NORMAL PULMONIC VALVE: NORMAL AORTIC VALVE: NORMAL PERICARDIAL EFFUSION: NONE AORTIC ROOT: NORMAL LEFT VENTRICULAR WALL MOTION: NORMAL DOPPLER/COLOR FLOW: NORMAL COMMENTS: 1. NORMAL LEFT VENTRICULAR SYSTOLIC FUNCTION, EJECTION FRACTION 60-65%, NORMAL WALL MOTION 2. NORMAL DIASTOLIC FUNCTION TECHNOLOGIST: TOMASZ SOLIZ
== END 2024-06-17 15:15 | disposition home or self-care (01) ==
LOC: ER 21:42 → ERHOLD 06-17 02:19
PROVIDERS: ADMIT Internal Medicine Nephrology; ATTEND Internal Medicine
DX: G45.9 Transient cerebral ischemic attack, unspecified (principal); R47.01 Aphasia; I69.922 Dysarthria following unspecified cerebrovascular disease; I10 Essential (primary) hypertension; E78.5 Hyperlipidemia, unspecified; Z79.82 Long term (current) use of aspirin; Z85.850 Personal history of malignant neoplasm of thyroid
CPT/HCPCS: 93005; 93306; 85025; 80048; 36415; 83735; 85610; 80061; 82565; 82947; 80076; 85730; 84443; 84484; 84439; 70450; 70496; 70498; 71045; Q9967; J0360; J1650; J7030; G0378

== ENCOUNTER 2024-08-15 17:29 | Emergency (ER) | payer OTHER ==
--- OUTSIDE RECORDS SUMMARY | 2024-08-15 17:32 | XMS REPORT | Clinical Summary ---
Author Name Unknown Organization [facility] Address [address] [place] [address] Care Team Providers Care Technical Support Coordinator Name Role Phone Hernán Escalona MD Primary Care Provider + Social History Tobacco Use Types Packs/Day Years Used Date Smoking Tobacco: Never Assessed Comments Unknown Sex and Gender Information Value Date Recorded Sex Assigned at Not on file Legal Sex Female 9:03 AM CDT Gender Identity Not on file Sexual Orientation Not on file Plan of Treatment Not on file [facility] [place] [facility] [id number] [place] [address] [facility] [employer] [facility] [place] Address: [id number] [place] [address] Care Teams Technical Support Coordinator Relationship Specialty Start Date End Date Hernán Escalona MD [address] [place] [phone] [email or web address] PCP - General Family Practice 06/29/15
[2024-08-15] MEDS ORDERED: DERMABOND SKIN ADHESIVE TOP ONE (18:34)
--- NOTE | 2024-08-15 18:35 | RAD REPORT ---
EXAMINATION: Head Brain Wo Cont CLINICAL INDICATION: Female, 74 years old.trauma, fall;Pain TECHNIQUE: Axial CT images from the skull base to the vertex without intravenous contrast. Coronal an d sagittal reformatted images were created from the data set. One or more of the following dose reduction techniques were used: Automated exposure control, adjustment of the mA and/or kV according to patient size, and/or iterative reconstruction. Unless otherwise specified, incidental findings do not require dedicated imaging follow-up. [id number]. COMPARISON: No prior exam. FINDINGS: INTRACRANIAL: No acute intracranial hemorrhage. No hydrocephalus. No mass effect or midline shift. Mi ld chronic small vessel ischemic changes.Mild cerebral atrophy. VASCULATURE: No visualized abnormalities in the arteries or dural venous sinuses. SCALP/SKULL: No calvarial fracture identified. Left forehead hematoma. SINUSES: The visualized paranasal sinuses are mostly clear. No significant mastoid fluid. IMPRESSION: No acute intracranial abnormality. Forehead hematoma but no underlying skull fracture.
--- NOTE | 2024-08-15 18:37 | RAD REPORT ---
EXAMINATION: Facial Bones W/ Mpr CLINICAL INDICATION: Female, 74 years old. facial pain, trauma TECHNIQUE: Axial images were obtained through the facial bones and orbits without intravenous contras t. Sagittal and coronal reconstructions were created from the data. One or more of the following dose reduction techniques were used: Automated exposure control, adjustment of the mA and/or kV accor ding to patient size, and/or iterative reconstruction. Unless otherwise specified, incidental findings do not require dedicated imaging follow-up. [id number]. COMPARISON: No prior exam. FINDINGS: SOFT TISSUE: Hematoma at the forehead, left of center. BONES: Minimally displaced bilateral nasal bone fractures which are age-indeterminate. ORBITS: The globes are intact. No intraorbital hemorrhage or mass. SINUSES: The paranasal sinuses and tympanomastoid cavities are predominantly clear. BRAIN: No acute abnormalities in the visualized intracranial structures. IMPRESSION: Age-indeterminate nondisplaced nasal bone fractures. No other fractures identified. Forehead hematoma .
[2024-08-15] MEDS ORDERED: TDAP (DIPHTH,PERTUSS(ACELL),TET VAC) 0.5 ML VIAL IMVAC ONE (19:00)
--- NOTE | 2024-08-15 19:02 | RAD REPORT ---
EXAMINATION: Knee Left 3 View VIEWS: Three views CLINICAL INDICATION: Female, 74 years old. PAIN COMPARISON: No prior exam. IMPRESSION: No acute fracture. Intact left knee arthroplasty. No malalignment.
--- NOTE | 2024-08-15 19:03 | EDPHYS ---
Physician Documentation [facility] Name: Vickie Ibrahim Age: 74 yrs Sex: Female : 1950 Arrival Date: 08/15/2024 Time: 17:29 Bed 19 Private MD: ED Physician Fernando Clayton HPI: 08/15 18:59 This 74 yrs old Female presents to ER via Ambulatory with complaints of Fall Injury - rn HEAD INJURIES. 19:00 The patient or guardian reports injury, pain. The complaints affect the forehead. rn Onset: The symptoms/episode began/occurred just prior to arrival. Patient reports tripped over a garden hose, struck head and left knee. Is ambulatory. Minimal pain to left knee. Reports has fallen before with facial injury. Takes Plavix.. Historical: - Allergies: 17:35 No Known Allergies; ll1 - PMHx: 17:35 gastric sleeve; Hypertensive disorder; THYROID CANCER; ll1 - PSHx: 17:35 bilateral knee replacement; Thyroidectomy; ll1 - Immunization history:: Adult Immunizations up to date. - Infectious Disease History:: Denies. - Social history:: Smoking status: Patient denies any tobacco usage or history of. - Family history:: not pertinent. - Hospitalizations: : No recent hospitalization is reported. ROS: 19:00 Constitutional: Negative for fever, chills, and weight loss, ENT: Positive for forehead rn and nasal injury. Neck: Negative for injury, pain, and swelling, Cardiovascular: Negative for chest pain, palpitations, and edema, Respiratory: Negative for shortness of breath, cough, wheezing, and pleuritic chest pain, Abdomen/GI: Negative for abdominal pain, nausea, vomiting, diarrhea, and constipation, Back: Negative for injury and pain, MS/Extremity: Positive for left knee injury and pain Skin: Positive for abrasions to left forehead and left knee Neuro: Positive for mild headache Exam: 19:00 Constitutional: This is a well developed, well nourished patient who is awake, alert, rn and in no acute distress. Head/Face: Abrasion and hematoma to left forehead. Abrasion with subcentimeter laceration to the nasal bridge. No active bleeding or foreign body. Neck: No midline cervical tenderness Respiratory: No increased work of breathing, no retractions or nasal flaring. Back: No spinal tenderness. MS/ Extremity: Positive for abrasion to the left knee Neuro: Awake and alert, GCS 15, normal gait Vital Signs: 17:38 BP 188 / 87; Pulse 55; Resp 18; Temp 97.3; Pulse Ox 100% ; Weight 95.25 kg; Height 5 ll1 ft. 4 in. ; Pain 2/10; 19:11 BP 198 / 78; Pulse 51; Resp 15; cm10 17:38 Body Mass Index 36.04 (95.25 kg, 162.56 cm) ll1 17:38 Pain Scale: Adult ll1 19:[address] Forrest gonzalez to discharge cm10 Laceration: 19:00 Wound Repair of 0.5cm ( 0.2in ) subcutaneous laceration to nose. Distal rn neuro/vascular/tendon intact. Wound prep: Extensive cleansing by nurse, Wound explored extensively. Skin closed with 1 thin layer Adhesive skin closure using Dermabond. Dressed with steri-strip. Patient tolerated well. MDM: 17:41 Medical Screening Exam initiated rn 08/15 17:42 Order name: CT Head Brain wo Cont; Complete Time: 18:44 rn 08/15 17:42 Order name: CT Facial Bones W/O Con; Complete Time: 18:44 rn 08/15 17:42 Order name: XRAY Knee LEFT 3 view; Complete Time: 19:03 rn Administered Medications: 19:10 Drug: Boostrix Tdap IM 0.5 ml IM once; as a single dose Route: IM; Site: left deltoid; cm10 19:21 Follow up: Response: (VIS) Vaccine information sheet provided today. Questions and/or cm10 concerns addressed. 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 EDMS EDMS 17: 17:42 Knee Left 3 View+RAD.RAD.BRZ ordered. EDMS EDMS
--- NOTE | 2024-08-15 19:03 | ER ---
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 Hit face and forehead, no LOC. + blood thinners. Coronavirus screen: Client denies travel out of the [place] in the last 14 days. At this time, the client does not indicate any symptoms associated with coronavirus-19. Ebola Screen: Patient denies travel to an Ebola-affected area in the 21 days before illness onset. Initial Sepsis Screen: Does the patient meet any 2 criteria? No. Patient's initial sepsis screen is negative. Does the patient have a suspected source of infection? No. Patient's initial sepsis screen is negative. Risk Assessment: Do you want to hurt yourself or someone else? Patient reports no desire to harm self or others. Onset of symptoms was August 15, 2024. 17:38 Method Of Arrival: Ambulatory ll1 17:38 Acuity: RAE 3 ll1 Historical: - Allergies: 17:35 No Known Allergies; ll1 - PMHx: 17:35 gastric sleeve; Hypertensive disorder; THYROID CANCER; ll1 - PSHx: 17:35 bilateral knee replacement; Thyroidectomy; ll1 - Immunization history:: Adult Immunizations up to date. - Infectious Disease History:: Denies. - Social history:: Smoking status: Patient denies any tobacco usage or history of. - Family history:: not pertinent. - Hospitalizations: : No recent hospitalization is reported. Screenin:16 [facility] ED Fall Risk Assessment (Adult) History of falling in the last 3 months, cm10 including since admission Yes- single mechanical fall (1 pt) Confusion or Disorientation No (0 pts) Intoxicated or Sedated No (0 pts) Impaired Gait No (0 pts) Mobility Assist Device Used No (0 pt) Altered Elimination No (0 pt) Score/Fall Risk Level 0 - 2 = Low Risk Oriented to surroundings, Maintained a safe environment, Hourly rounding (assess needs \T\ fall precautionary measures) done. Abuse screen: Denies threats or abuse. Denies injuries from another. Nutritional screening: No deficits noted. Tuberculosis screening: No symptoms or risk factors identified. Assessment: 18:00 General: Appears in no apparent distress. uncomfortable, Behavior is calm, cooperative. cm10 Pain: Complains of pain in Head and left knee. Neuro: Level of Consciousness is awake, alert, obeys commands, Oriented to person, place, time, situation, Appropriate for age. Respiratory: No deficits noted. Airway is patent Respiratory effort is even, unlabored, Respiratory pattern is regular, symmetrical. Musculoskeletal: No deficits noted. Range of motion: intact in all extremities. Injury Description: Abrasion sustained to forehead, nose and left knee. Vital Signs: 17:38 BP 188 / 87; Pulse 55; Resp 18; Temp 97.3; Pulse Ox 100% ; Weight 95.25 kg; Height 5 ll1 ft. 4 in. ; Pain 2/10; 19:11 BP 198 / 78; Pulse 51; Resp 15; cm10 17:38 Body Mass Index 36.04 (95.25 kg, 162.56 cm) ll1 17:38 Pain Scale: Adult ll1 19:[address] Clayton ok to discharge cm10 ED Course: 17:33 Patient arrived in ED. sj2 17:39 Triage completed. ll1 17:39 Arm band placed on. ll1 17:41 Fernando Clayton MD is Attending Physician. rn 18:29 CT Head Brain wo Cont In Process Unspecified. EDMS 18:29 CT Facial Bones W/O Con In Process Unspecified. EDMS 18:46 Patient has correct armband on for positive identification. Bed in low position. Call cm10 light in reach. 18:46 Wound care: to abrasion, located on nose was cleaned with Hibiclens, ice pack applied. cm10 Patient tolerated well. 18:53 XRAY Knee LEFT 3 view In Process Unspecified. EDMS 19:22 Provided Education on: Follow-up instructions. cm10 19:22 Assist provider with laceration repair on nose that was 2.5 cm. or less using cm10 Steri-strips. Performed by Fernando Clayton MD. Patient did not have IV access during this emergency room visit. Administered Medications: 19:10 Drug: Boostrix Tdap IM 0.5 ml IM once; as a single dose Route: IM; Site: left deltoid; cm10 19:21 Follow up: Response: (VIS) Vaccine information sheet provided today. Questions and/or cm10 concerns addressed. VIS edition date: Nov 04, 2020.; No adverse reaction Medication: 19:22 Vaccine Information Statement (VIS) provided today. Questions and/or concerns cm10 addressed. VIS edition date: November 04, 2020. Outcome: 19:03 Discharge ordered by . rn 19:22 Discharged to home ambulatory, with significant other, cm10 19:22 Condition: good 19:22 Discharge instructions given to patient, Instructed on discharge instructions, follow up and referral plans. wound care, Demonstrated understanding of instructions, follow-up care, wound care, 19:23 Patient left the ED. cm10 Signatures: Dispatcher [employer] EDMS Fernando Clayton MD MD rn Lewis, Lynsay, RN RN ll1 Alma Martin RN RN cm10 Tia Stephens sj2 Corrections: (The following items were deleted from the chart) 17:50 17:38 Pulse 55bpm; Resp 18bpm; Pulse Ox 100%; Temp 97.3F; 95.25 kg; Height 5 ft. 4 in.; ll1 BMI: 36.0; Pain 2/10, Adult; ll1 19:21 19:11 BP 198 / 78; Pulse 51bpm; Resp 15bpm; cm10 cm10 19:23 19:22 No provider procedures requiring assistance completed. cm10 cm10
[2024-08-15 19:35] VITALS: TEMP 97.3; O2SAT 100
[2024-08-15 19:37] VITALS: BP 198/78
== END 2024-08-15 19:23 | disposition home or self-care (01) ==
LOC: ER 17:29
DX: S01.21XA Laceration without foreign body of nose, initial encounter (principal); W01.198A Fall on same level from slipping, tripping and stumbling with subsequent striking against other object, initial encounter; Z23 Encounter for immunization; Z96.653 Presence of artificial knee joint, bilateral
CPT/HCPCS: 12051; 70450; 70486; 76377; 90715; 96372; 99284